=== PATIENT | female | born 1965 | race Caucasian/White ===

== ENCOUNTER → 2018-03-16 14:48 | Outpatient (REF) | payer OTHER, MEDICAID, SELFPAY ==
--- NOTE | 2018-03-27 09:06 | PM.PFT.1 ---
Pulmonary Function Test Referral & Results Date Patient Seen: 03/16/18 Requesting provider: Oscar Amaro Results: The spirometry demonstrates an FVC of 2.64 L which is 80% of predicted. The FEV1 was measured at 2.18 L which is 83% of predicted. The FEV1/FVC ratio was 82 which is 103% of predicted. Following the administration of bronchodilator there was no appreciable change. Lung volumes show an SVC of 3.11 L which is 102% of predicted. The diffusing capacity was measured at 36.72 which is 170% of predicted. The maximum voluntary ventilation was normal. Interpretation: This study demonstrates perhaps mild obstructive lung disease. This could also be interpreted as normal, and review of flow volume loop appears to be normal as well. Lung volumes are normal as is diffusing capacity. Clinical correlation suggested
== END ==
LOC: RESP 14:48
PROVIDERS: Family Provider Physician Assistant; PCP Physician Assistant; Visit Provider Allergy & Immunology
DX: R06.09 Other forms of dyspnea (principal)
CPT/HCPCS: 94010; 94060; 94726; 94729

== ENCOUNTER → 2018-06-29 15:26 | Outpatient (CLI) | payer OTHER, MEDICAID, SELFPAY | PROVIDERS: Family Provider Physician Assistant; PCP Family Medicine; Visit Provider Internal Medicine | DX: E04.2 Nontoxic multinodular goiter (principal) | CPT/HCPCS: 36415; 86800 ==

== ENCOUNTER → 2018-08-28 14:24 | Outpatient (CLI) | payer OTHER, MEDICAID, SELFPAY | PROVIDERS: PCP Family Medicine; Visit Provider Internal Medicine | DX: E04.2 Nontoxic multinodular goiter (principal) | CPT/HCPCS: 36415; 86800 ==

== ENCOUNTER → 2019-01-25 10:16 | Outpatient (CLI) | payer OTHER, MEDICAID, SELFPAY ==
[2019-01-25 11:16] LABS: Add Manual Diff / Slide Review NO; Basophils Absolute Auto 0 /uL (0-100); Basophils Percent Auto 0.8 % (0-2); Eosinophils Absolute Auto 100 /uL (0-450); Hematocrit 41.6 % (36-46); Lymphocytes Absolute Auto 1400 /uL (1100-4500); Lymphocytes Percent Auto 26.3 % (25-40); Mean Corpuscular HGB Conc 33.7 % (30-36); Mean Corpuscular Hemoglobin 29.6 PG (26-34); Mean Corpuscular Volume 87.8 fL (80-100); Monocytes Absolute Auto 500 /uL (0-900); Monocytes Percent Auto 9.1 % (3-14); Neutrophils Absolute Auto 3200 /uL (1500-7000); Neutrophils Percent Auto 61.8 % (50-75); Platelet Count 173 X10^3/uL (150-400); Red Blood Cell Count 4.73 X10^6/uL (4.0-5.2); Red Cell Distribution Width 14.8 % (11.6-14.8); White Blood Cell Count 5.2 X10^3/uL (4.5-11.0)
[2019-01-25 11:29] LABS: Appearance Urine UA CLEAR; Bilirubin Urine UA NEGATIVE (NEGATIVE); Color Urine UA YELLOW; Glucose Urine UA NEGATIVE (Negative); Ketones Urine UA NEGATIVE (NEGATIVE); Leukocyte Esterase Urine UA NEGATIVE (NEGATIVE); Nitrite Urine UA NEGATIVE (Negative); Occult Blood Urine UA 3+ (Negative); Protein Urine UA NEGATIVE (Negative); Urobilinogen Urine UA 0.2 E.U./dL (0.2)
[2019-01-25 11:42] LABS: Amorphous Sediment Urine 2+; Bacteria Urine Moderate (10-30); Culture Indicated Urine Specimen Cultured; RBC Urine 5-10/HPF (0-5/HPF); Squamous Epithelial Cell Urine 1-5 /HPF (0-5/HPF); WBC Urine 1-5/HPF (0-5/HPF)
[2019-01-25 11:43] LABS: Alanine Aminotransferase 55 IU/L (9-52); Albumin Globulin Ratio 1.5 (1.0-2.8); Alkaline Phosphatase 82 U/L (38-126); Aspartate Aminotransferase 37 IU/L (14-36); BUN Creatinine Ratio 16.7 (6-22); Bilirubin Total 0.5 mg/dL (0.2-1.3); Blood Urea Nitrogen 10 mg/dL (7-17); Calcium 8.9 mg/dL (8.4-10.2); Carbon Dioxide 29 mmol/L (22-32); Chloride 101 mmol/L (98-107); Cholesterol 243 mg/dL (140-199); Estimated Glomerular Filt Rate > 60.0 mL/min (>60); Globulin 2.6 g/dL (1.7-4.1); Glucose 89 mg/dL (70-100); HDL Cholesterol 70 mg/dL (40-60); HEMOLYSIS < 15 (0-50); LDL Cholesterol Calculated 161 mg/dL (<100); Potassium 3.8 mmol/L (3.4-5.1); Sodium 137 mmol/L (137-145); Total Protein 6.6 g/dL (6.3-8.2); Triglycerides 60 mg/dL (35-150)
[2019-01-25 12:10] LABS: Thyroid Stimulating Hormone 4.51 uIU/mL (0.47-4.68)
== END ==
PROVIDERS: PCP Family Medicine; Visit Provider Family Medicine
DX: E88.81 Metabolic syndrome and other insulin resistance (principal); M54.9 Dorsalgia, unspecified; Z13.220 Encounter for screening for lipoid disorders; Z13.29 Encounter for screening for other suspected endocrine disorder; Z51.81 Encounter for therapeutic drug level monitoring
CPT/HCPCS: 36415; 80053; 80061; 81003; 81015; 84443; 85025; 87086

== ENCOUNTER → 2019-05-23 13:21 | Outpatient (CLI) | payer OTHER, MEDICAID, SELFPAY ==
--- NOTE | 2019-05-23 | DI.US.S_ITS ---
PROCEDURE: US THYROID INDICATIONS: NODULE TECHNIQUE: Real-time scanning was performed of the thyroid gland, with image documentation. COMPARISON: [facility], US, THYROID, 01/25/2018, 16:28. FINDINGS: Right: Thyroid lobe measures 4.4 x 1.4 x 1.6 cm, and is homogeneous in echotexture. Left: Thyroid lobe measures 4.0 x 1.2 x 1.2 cm, and is homogenous in echotexture. Isthmus: 3.8 mm thick. Nodule number: 1 Location: Right inferior Size: Unchanged 1.8 x 1.3 x 1.4 cm. Composition: Solid Echogenicity: Isoechoic Shape: wider than tall. Margins: Smooth Echogenic foci: None Total points: 3 ACR TI-RADS category: Mildly suspicious IMPRESSION: No change in solitary right thyroid nodule. Recommend continued followup ultrasound as detailed below. ACR TI-RADS definitions and recommendations: TI-RADS 1 (benign): 0 points. FNA not needed. TI-RADS 2 (not suspicious): 2 points. FNA not needed. TI-RADS 3 (mildly suspicious): 3 points. * FNA if 2.5 cm or larger, follow up if 1.5 cm or larger (at 1, 3, and 5 years). TI-RADS 4 (moderately suspicious): 4-6 points. * FNA if 1.5 cm or larger, follow up if 1 cm or larger (at 1, 2, 3, and 5 years). TI-RADS 5 (highly suspicious): 7 points or more. * FNA if 1 cm or larger, follow up if 0.5 cm or larger (every year for 5 years). Dictated by: Leonard Almazan [facility] Interpreted: Wally Valdovinos MD on 05/23/2019 at 14:13 Approved by: Wally Valdovinos M.D. on 05/23/2019 at 14:58
[2019-05-25 16:03] LABS: Anti Thyroglobulin Antibody < 1 IU/mL (< 2)
== END ==
PROVIDERS: PCP Family Medicine; Visit Provider Internal Medicine
DX: E04.1 Nontoxic single thyroid nodule (principal)
CPT/HCPCS: 36415; 76536; 86800

== ENCOUNTER 2020-01-18 16:25 | Emergency (ER) | payer OTHER, MEDICAID, SELFPAY ==
[2020-01-18 16:38] VITALS: BP 200/70; PULSE 86; RESP 14; TEMP 36.5; O2SAT 97
--- NOTE | 2020-01-18 16:40 | ED_ITS ---
HPI - Extremity Injury (Lower) General Chief Complaint: Extremity Injury, Lower Stated Complaint: right knee pain over a month Time Seen by Provider: 01/18/20 16:37 Source: patient Mode of arrival: Wheelchair Limitations: no limitations History of Present Illness HPI Narrative: 54-year-old obese female here for evaluation of right knee pain. Patient states that her knee is hurt for least the past several weeks and then worsened over the past 24-48 hours. No specific trauma. Has taken qwfg-adx-[id number] medicines for the symptoms. Has not seen her primary doctor and had any imaging performed on it. Came in today because the pain. Related Data Home Medications Medication Instructions Recorded Confirmed fluticasone propionate [Flonase #0 10/31/17 12/19/19 Allergy Relief] Previous Rx's Medication Instructions Recorded Disabled parking permit #1 ea 12/07/18 albuterol sulfate 90 mcg/actuation 1 puff INHALATION QID PRN #8.5 gram 02/20/19 aerosol inhaler zzhbalcqnh-vcxnmacvpgufu-tlxhlgmh 1 tab PO QDAYP PRN #60 tab 08/26/19 50 mg-325 mg-40 mg tablet mometasone-formoterol HFA 100 2 puff INHALATION BID #13 gram 08/30/19 mcg-5 mcg/actuation aerosol inhaler gabapentin 100 mg capsule 300 mg PO QID #360 cap 12/19/19 sumatriptan succinate 50 mg tablet 50 mg PO ONCE PRN #30 tab 12/19/19 tramadol [Ultram] 50 mg PO BID PRN #10 tab 01/18/20 Allergies Allergy/AdvReac Type Severity Reaction Status Date / Time Penicillins [PENICILLINS] Allergy Unknown Verified 12/19/19 14:36 Sulfa (Sulfonamide Allergy Unknown Verified 12/19/19 14:36 Antibiotics) [SULFA (SULFONAMIDE ANTIBIOTICS)] Review of Systems Constitutional Constitutional: Denies fever(s) ENT Ears, Nose, Mouth, and Throat: Denies disequilibrium Musculoskeletal Musculoskeletal: Denies numbness and Denies tingling Comments: Right knee pain Integumentary/Breasts Skin/Breast: Denies rash Neurologic Neurologic: Denies numbness, Denies tingling and Denies disequilibrium Hematologic/Lymphatic Hematologic/Lymphatic: Denies easy bleeding and Denies easy bruising Patient History Medical History Acne (Resolved 1979) Allergic rhinitis (Chronic) Ankle pain (Resolved Unknown) Arthritis (Chronic) Asthma (Chronic 2009) Cervical spine disease (Chronic 1998) Diabetes (Chronic Unknown) Elevated blood pressure reading (Acute) Elevated blood sugar (Chronic) Fibromyalgia (Chronic) Foot pain (Chronic 1969) GERD (gastroesophageal reflux disease) (Chronic Unknown) Hyperlipidemia (Chronic) Obesity, morbid, BMI 50 or higher (Acute) Surgical History History of bladder suspension procedure History of tonsillectomy Social History Smoking Status: Never smoker alcohol intake: current substance use type: does not use Smoking Status: Never smoker Exam Initial Vital Signs Initial Vital Signs: Vital Signs Temperature 97.7 F 01/18/20 16:38 Pulse Rate 86 01/18/20 16:38 Respiratory Rate 14 01/18/20 16:38 Blood Pressure 200/70 H 01/18/20 16:38 Pulse Oximetry 97 01/18/20 16:38 Const General: cooperative Limitations: mental status not altered Cardio Pulses: dorsalis pedis present on the right Skin Lesions: no lesions Rashes: no rashes Neuro General: alert and awake Cognition: normal cognition Speech: speech normal Extrem Other: Tenderness to palpation medial aspect right knee along the joint line and also the medial hamstring. No lateral tenderness. No tenderness over the patella tendon over the quadriceps tendon. No ankle tenderness. Procedures Orthopedic Splinting/Casting Injury #1: Side: right Lower Extremity Injury Location: knee Lower Extremity Immobilizer: Tito wrap Post splinting neuro exam: intact Post splinting vascular exam: intact Placed by: Nursing Course Orders Ordered: ED Orders 01/18/20 16:48 XR knee RT 3V Stat Vital Signs Vital signs: Vital Signs - 8 hr 01/18/20 16:38 Temperature 97.7 F Pulse Rate 86 Respiratory Rate 14 Blood Pressure 200/70 H Pulse Oximetry 97 MDM - Extremity Injury (Lower) Imaging Data Extremity x-ray #1: Radiologist's Impression: [address] [address] XRay Report Signed Patient: Marlene Mccloud LMR#: [id number] : 1965Acct:[id number] Age/Sex: 54 / FDate of Service: 01/18/20 Loc: ED Accession Number: [id number] Procedure: XR knee RT 3V Ordering Provider: Jonathan Moe D.O. PROCEDURE: XR KNEE RT 3V INDICATIONS: Right medial knee pain TECHNIQUE: 3 views of the knee were acquired. COMPARISON: Located [facility], , KNEE 3V RIGHT, 12/19/2017, 16:22. FINDINGS: Bones: No displaced fractures or dislocations are identified. Age-appropriate degenerative changes appear to be present. No suspicious osseous lesions are evident. Soft tissues: No joint effusion. No suspicious soft tissue calcifications. IMPRESSION: No acute fractures of the right knee. Dictated by: Chad Gan M.D. on 01/18/2020 at 16:26 Approved by: Chad Gan M.D. on 01/18/2020 at 16:30 MDM Narrative Medical decision making narrative: Neurovascular intact, no fractures on the x- ray, tenderness over the medial hamstring and medial joint line and MCL. Suspect soft tissue injury. Discussed Tito bandage. Discussed she can put pressure on her leg as tolerated. I gave her return precautions follow-up instructions. She expressed understanding and agreement. Discharge Plan Departure Patient Disposition: Home Clinical Impression: Knee pain, right Qualifiers: Chronicity: chronic Qualified Code(s): M25.561 - Pain in right knee Instructions: How to Apply an Elastic Wrap on Knee Activity Restrictions/Additional Instructions: There were no fractures on your x-ray. You can put pressure on your right knee as tolerated. Recommend you call your primary provider to discuss further workup to include potential referral to see physical therapy and/or an MRI. Use the Tito bandage as needed. Prescriptions: New tramadol [Ultram] 50 mg tablet 50 mg PO BID PRN (Reason: pain) Qty: 10 RF: 0 No Action (DME) Disabled parking permit Qty: 1 RF: 0 fluticasone propionate [Flonase Allergy Relief] 9.9 ML spray,suspension Qty: 0 RF: 0 albuterol sulfate [ProAir HFA] 90 mcg/actuation HFA aerosol inhaler 1 puff INHALATION QID PRN (Reason: shortness of breath or wheezing) Qty: 8.5 RF: 0 iustilgobs-fbxggacszevwu-dyts 50-325-40 mg tablet 1 tab PO QDAYP PRN (Reason: pain) Qty: 60 RF: 2 Hold Instructions: wean off Dulera 100-5 mcg/actuation HFA aerosol inhaler 2 puff INHALATION BID Qty: 13 RF: 1 sumatriptan succinate 50 mg tablet 50 mg PO ONCE PRN (Reason: migraine headache) Qty: 30 RF: 1 gabapentin 100 mg capsule 300 mg PO QID Qty: 360 RF: 3 Referrals: Gisell Ackerman DO [Primary Care Provider] -
--- NOTE | 2020-01-18 16:48 | DI.RAD.S_ITS ---
PROCEDURE: XR KNEE RT 3V INDICATIONS: Right medial knee pain TECHNIQUE: 3 views of the knee were acquired. COMPARISON: [facility], , KNEE 3V RIGHT, 12/19/2017, 16:22. FINDINGS: Bones: No displaced fractures or dislocations are identified. Age-appropriate degenerative changes appear to be present. No suspicious osseous lesions are evident. Soft tissues: No joint effusion. No suspicious soft tissue calcifications. IMPRESSION: No acute fractures of the right knee. Dictated by: Chad Gan M.D. on 01/18/2020 at 16:26 Approved by: Chad Gan M.D. on 01/18/2020 at 16:30
[2020-01-18 18:04] VITALS: BP 197/91; PULSE 78; RESP 17; O2SAT 98
== END 2020-01-18 18:05 | disposition home or self-care (01) ==
PROVIDERS: Emergency Provider Emergency Medicine; PCP Family Medicine
DX: M25.561 Pain in right knee (principal); E66.9 Obesity, unspecified
CPT/HCPCS: 73562; 99283

== ENCOUNTER → 2020-06-24 11:33 | Outpatient (CLI) | payer OTHER, MEDICAID, SELFPAY | PROVIDERS: Visit Provider Physician Assistant | DX: L98.9 Disorder of the skin and subcutaneous tissue, unspecified (principal) | CPT/HCPCS: 87070; 87075; 87077; 87147; 87186; 87205 ==

== ENCOUNTER → 2020-07-02 14:56 | Outpatient (CLI) | payer OTHER, MEDICAID, SELFPAY ==
--- NOTE | 2020-07-02 14:59 | DI.US.S_ITS ---
PROCEDURE: US PERIPH VENOUS LOW EXTREM RT INDICATIONS: swelling RLE, improved with elevation TECHNIQUE: Real-time imaging, as well as color and pulse Doppler interrogation, were performed of the lower extremity deep veins from the inguinal ligament to the popliteal fossa. COMPARISON: None. FINDINGS: The common femoral, femoral and popliteal veins are normally compressible, and free of intraluminal thrombus. Color and pulse Doppler demonstrate normal phasic intraluminal flow. There is normal augmentation response to distal compression maneuver. A moderate Davis's cyst is seen in the popliteal fossa measuring 5.2 x 1.8 x 3.8 cm. IMPRESSION: 1. No sonographic evidence of deep venous thrombosis in the right lower extremity. 2. Moderate Davis cyst. Dictated by: Andres Evans M.D. on 07/02/2020 at 15:29 Approved by: Andres Evans M.D. on 07/02/2020 at 15:30
== END ==
PROVIDERS: Referring Provider Physician Assistant; Visit Provider Physician Assistant
DX: M79.89 Other specified soft tissue disorders (principal); M71.21 Synovial cyst of popliteal space [Baker], right knee
CPT/HCPCS: 93971

== ENCOUNTER → 2020-10-02 11:44 | Outpatient (CLI) | payer OTHER, MEDICAID, SELFPAY ==
[2020-10-02 13:07] LABS: Alanine Aminotransferase 45 IU/L (<35); Albumin 4.1 g/dL (3.5-5.0); Albumin Globulin Ratio 1.4 (1.0-2.8); Alkaline Phosphatase 70 U/L (38-126); Aspartate Aminotransferase 41 IU/L (14-36); BUN Creatinine Ratio 21.7 (6-22); Bilirubin Total 0.6 mg/dL (0.2-1.3); Blood Urea Nitrogen 15 mg/dL (7-17); Calcium 8.9 mg/dL (8.4-10.2); Carbon Dioxide 31 mmol/L (22-32); Chloride 104 mmol/L (98-107); Cholesterol 197 mg/dL (140-199); Estimated Glomerular Filt Rate > 60.0 mL/min (>60); Globulin 2.9 g/dL (1.7-4.1); Glucose 101 mg/dL (70-100); HDL Cholesterol 54 mg/dL (40-60); HEMOLYSIS < 15 (0-50); Hemoglobin A1C% w Est Avg Glu 5.3 % (4.0-6.0); LDL Cholesterol Calculated 128 mg/dL (<100); Potassium 3.8 mmol/L (3.4-5.1); Sodium 139 mmol/L (137-145); Triglycerides 77 mg/dL (35-150)
== END ==
PROVIDERS: PCP Registered Nurse; Referring Provider Registered Nurse; Visit Provider Registered Nurse
DX: R73.9 Hyperglycemia, unspecified (principal); E78.5 Hyperlipidemia, unspecified; I10 Essential (primary) hypertension
CPT/HCPCS: 36415; 80053; 80061; 83036

== ENCOUNTER → 2020-11-17 15:39 | Outpatient (CLI) | payer OTHER, MEDICAID, SELFPAY | PROVIDERS: PCP Registered Nurse; Visit Provider Registered Nurse | DX: R30.9 Painful micturition, unspecified (principal) | CPT/HCPCS: 87086 ==

== ENCOUNTER → 2021-06-25 13:33 | Outpatient (CLI) | payer OTHER, MEDICAID, SELFPAY ==
[2021-06-25 14:37] LABS: Alanine Aminotransferase 27 IU/L (<35); Albumin 4.2 g/dL (3.5-5.0); Albumin Globulin Ratio 1.6 (1.0-2.8); Alkaline Phosphatase 76 U/L (38-126); Aspartate Aminotransferase 36 IU/L (14-36); BUN Creatinine Ratio 30.2 (6-22); Bilirubin Total 0.5 mg/dL (0.2-1.3); Blood Urea Nitrogen 19 mg/dL (7-17); Carbon Dioxide 27 mmol/L (22-32); Chloride 106 mmol/L (98-107); Cholesterol 191 mg/dL (140-199); Estimated Glomerular Filt Rate > 60.0 mL/min (>60); Globulin 2.7 g/dL (1.7-4.1); Glucose 99 mg/dL (70-100); HDL Cholesterol 70 mg/dL (40-60); HEMOLYSIS 15 (0-50); LDL Cholesterol Calculated 109 mg/dL (<100); Potassium 4.1 mmol/L (3.4-5.1); Sodium 139 mmol/L (137-145); Total Protein 6.9 g/dL (6.3-8.2); Triglycerides 62 mg/dL (35-150)
== END ==
PROVIDERS: PCP Registered Nurse; Referring Provider Registered Nurse; Visit Provider Registered Nurse
DX: I10 Essential (primary) hypertension (principal); E78.5 Hyperlipidemia, unspecified
CPT/HCPCS: 36415; 80053; 80061

== ENCOUNTER → 2022-10-29 10:43 | Outpatient (CLI) | payer OTHER, MEDICAID, SELFPAY | PROVIDERS: PCP Internal Medicine; Visit Provider Registered Nurse | DX: N39.0 Urinary tract infection, site not specified (principal) | CPT/HCPCS: 81002; 87077; 87086; 87186 ==

== ENCOUNTER → 2022-11-15 15:21 | Outpatient (CLI) | payer OTHER, MEDICAID, SELFPAY | PROVIDERS: PCP Internal Medicine; Visit Provider Internal Medicine | DX: R30.0 Dysuria (principal) | CPT/HCPCS: 81002; 87077; 87086; 87186 ==

== ENCOUNTER → 2023-01-20 08:11 | Outpatient (CLI) | payer OTHER, MEDICAID, SELFPAY ==
[2023-01-20 10:15] LABS: Alanine Aminotransferase 32 IU/L (<35); Albumin 3.9 g/dL (3.5-5.0); Albumin Globulin Ratio 1.3 (1.0-2.8); Alkaline Phosphatase 92 U/L (38-126); Aspartate Aminotransferase 31 IU/L (14-36); Bilirubin Total 0.5 mg/dL (0.2-1.3); Blood Urea Nitrogen 21 mg/dL (7-17); Calcium 8.9 mg/dL (8.4-10.2); Carbon Dioxide 29 mmol/L (22-32); Chloride 104 mmol/L (98-107); Cholesterol 197 mg/dL (140-199); Estimated Glomerular Filt Rate > 60 mL/min (>60); Gamma Glutamyl Transpeptidase 23 U/L (12-43); Globulin 2.9 g/dL (1.7-4.1); Glucose 88 mg/dL (70-100); HDL Cholesterol 59 mg/dL (40-60); HEMOLYSIS < 15 (0-50); LDL Cholesterol Calculated 126 mg/dL (<100); Potassium 4.1 mmol/L (3.4-5.1); Sodium 140 mmol/L (137-145); Total Protein 6.8 g/dL (6.3-8.2); Triglycerides 61 mg/dL (35-150)
[2023-01-20 10:17] LABS: Vitamin D 25 Hydroxy (D3) 45.3 ng/mL (30.0-100.0)
== END ==
PROVIDERS: PCP Internal Medicine; Referring Provider Internal Medicine; Visit Provider Internal Medicine
DX: E55.9 Vitamin D deficiency, unspecified (principal); E66.01 Morbid (severe) obesity due to excess calories; I10 Essential (primary) hypertension; R94.5 Abnormal results of liver function studies
CPT/HCPCS: 36415; 80053; 80061; 82306; 82977